=== PATIENT | male | born 1990 | race African-American/Black ===

== ENCOUNTER 2019-07-11 23:59 | Emergency (ER) | payer OTHER ==
[~2019-07-11] VITALS: Ht 175.3 cm; Wt 81.9 kg
[2019-07-12 02:38] VITALS: BP 132/93
== END 2019-07-12 03:08 | disposition home or self-care (01) ==
LOC: ER 23:59
DX: K64.9 Unspecified hemorrhoids (principal); R19.7 Diarrhea, unspecified
CPT/HCPCS: 99283